=== PATIENT | female | born 2000 | race Caucasian/White ===

== ENCOUNTER 2019-04-02 08:08 | Emergency (ER) | payer OTHER ==
[~2019-04-02] VITALS: Ht 160 cm; Wt 63.6 kg
[2019-04-02] MEDS ORDERED: SOD CHLORIDE 0.9% 1,000 ML IV STA ×2 (08:14→09:30)
[2019-04-02 08:15] VITALS: Ht 160 cm; Wt 63.6 kg
[2019-04-02] MEDS ORDERED: POTASSIUM CHLORIDE (SR) 20 MEQ TAB PO STA (09:30)
[2019-04-02 11:49] VITALS: BP 107/69; PULSE 61; RESP 20
== END 2019-04-02 12:05 | disposition home or self-care (01) ==
LOC: E/R 08:08
DX: R55 Syncope and collapse (principal); E87.6 Hypokalemia; R00.1 Bradycardia, unspecified
CPT/HCPCS: 36415; 71045; 80053; 81001; 81025; 83690; 84484; 85025; 93005; J7030; Z7502; Z7610